=== PATIENT | female | born 1970 | race Two or more races ===

== ENCOUNTER 2019-06-30 05:55 | Day surgery (SDC) | payer OTHER ==
[2019-06-30] MEDS ORDERED: ONDANSETRON 4 MG/2 ML VIAL IV ONE (05:56)
[2019-06-30] MEDS ORDERED: LIDOCAINE-MPF 2% 5 ML VIAL MC ONE (05:56)
[2019-06-30] MEDS ORDERED: PROPOFOL 200 MG/20 ML BOTTLE IV ONE (05:56)
[2019-06-30] MEDS ORDERED: CEFAZOLIN 1 G VIAL IM ONE (05:56)
[2019-06-30] MEDS ORDERED: ESMOLOL HCL 100 MG/10 ML VIAL IV ONE (05:56)
[2019-06-30] MEDS ORDERED: FLUMAZENIL 0.5 MG/5 ML VIAL IVP ONE (05:56)
[2019-06-30] MEDS ORDERED: KETOROLAC TROMETHAMINE 30 MG INJ IM ONE (05:56)
[2019-06-30] MEDS ORDERED: IV NORMAL SALINE 1000 ML BAG IV ONE (05:56)
[2019-06-30] MEDS ORDERED: DEXAMETHASONE SOD PHOSPHATE 4 MG INJ IV ONE (05:56)
[2019-06-30] MEDS ORDERED: POLYMYXIN B SULFATE 500,000 UNITS, BACITRACIN 50,000 UNITS, NORMAL SALINE 20 ML MC ONE ×3 (07:15)
[2019-06-30] MEDS ORDERED: BUPIVACAINE/EPI PF 0.5% 10 ML VIAL ONE (07:41)
[2019-06-30] MEDS ORDERED: MIDAZOLAM HCL 10 MG/2 ML VIAL ONE (07:59)
[2019-06-30] MEDS ORDERED: FENTANYL CITRATE 100 MCG/2 ML AMPUL ONE ×2 (07:59→09:58)
[2019-06-30] MEDS ORDERED: FLUMAZENIL 0.5 MG/5 ML VIAL ONE (09:48)
[2019-06-30] MEDS ORDERED: ONDANSETRON 4 MG/2 ML VIAL ONE (10:25)
[2019-06-30] MEDS ORDERED: TRAMADOL HCL 50 MG TABLET ONE (11:08)
== END 2019-06-30 12:25 | disposition home or self-care (01) ==
LOC: DS 05:55
PROVIDERS: ATTEND Orthopaedic Surgery
DX: M75.101 Unspecified rotator cuff tear or rupture of right shoulder, not specified as traumatic (principal); M75.41 Impingement syndrome of right shoulder; M13.811 Other specified arthritis, right shoulder; F15.90 Other stimulant use, unspecified, uncomplicated; Z90.49 Acquired absence of other specified parts of digestive tract; Z98.890 Other specified postprocedural states
CPT/HCPCS: 23120; 23420; J0690; J1100; J1885; J2250; J2405 ×2; J3010 ×2; J3490 ×7; J7120; A4565; A4649; A4663; J7030

== ENCOUNTER 2020-06-14 06:58 | Day surgery (SDC) | payer OTHER ==
[2020-06-14] MEDS ORDERED: SEVOFLURANE 250 ML BOTTLE IH ONE (06:59)
[2020-06-14] MEDS ORDERED: PROPOFOL 200 MG/20 ML BOTTLE IV ONE (06:59)
[2020-06-14] MEDS ORDERED: CEFAZOLIN 1 G VIAL IM ONE (06:59)
[2020-06-14] MEDS ORDERED: NEOSTIGMINE METHYLSULFATE 10 MG/10 ML VIAL IM ONE (06:59)
[2020-06-14] MEDS ORDERED: KETOROLAC TROMETHAMINE 30 MG INJ IM ONE (06:59)
[2020-06-14] MEDS ORDERED: ONDANSETRON 4 MG/2 ML VIAL IV ONE (06:59)
[2020-06-14] MEDS ORDERED: LIDOCAINE-MPF 2% 5 ML VIAL IJ ONE (06:59)
[2020-06-14] MEDS ORDERED: GLYCOPYRROLATE 0.2 MG/ML VIAL IJ ONE (06:59)
[2020-06-14] MEDS ORDERED: METOCLOPRAMIDE HCL 10 MG/2 ML VIAL IV ONE (06:59)
[2020-06-14] MEDS ORDERED: POLYMYXIN B SULFATE 500,000 UNITS, BACITRACIN 50,000 UNITS, NORMAL SALINE 20 ML MC ONE ×3 (07:15)
[2020-06-14] MEDS ORDERED: BUPIVACAINE/EPI PF 0.5% 10 ML VIAL ONE (07:24)
[2020-06-14] MEDS ORDERED: MIDAZOLAM HCL 2 MG/2 ML VIAL ONE (07:41)
[2020-06-14] MEDS ORDERED: HYDROMORPHONE 2 MG/1 ML DISP.SYRIN ONE (07:42)
[2020-06-14] MEDS ORDERED: FENTANYL CITRATE 250 MCG/5 ML AMPUL ONE (07:42)
[2020-06-14] MEDS ORDERED: ROCURONIUM BROMIDE 50 MG/5 ML VIAL ONE (07:42)
[2020-06-14] MEDS ORDERED: TRAMADOL HCL 50 MG TABLET ONE (11:37)
== END 2020-06-14 12:05 | disposition home or self-care (01) ==
LOC: DS 06:58
PROVIDERS: ATTEND Orthopaedic Surgery
DX: M75.102 Unspecified rotator cuff tear or rupture of left shoulder, not specified as traumatic (principal); K21.9 Gastro-esophageal reflux disease without esophagitis; Z87.891 Personal history of nicotine dependence; Z79.899 Other long term (current) drug therapy; Z98.890 Other specified postprocedural states
CPT/HCPCS: 23120; 23410; 23415; 88304; J1170; J2250; J3010; J3490 ×4; J7120; A4565; A4649; A4663; J0690; J1885; J2405; J2765